=== PATIENT | female | born 1960 | race Caucasian/White ===

== ENCOUNTER 2019-03-28 08:30 | Day surgery (SDC) | payer OTHER ==
[2019-03-24 17:02] VITALS: BMI 22.4
[~2019-03-28 08:30] MED LIST: LACTATED RINGERS 1,000 ML IV SCH; LIDOCAINE 1% 20 ML VIAL (10MG/ML) FOR IV START INTRADERMA PRN
[2019-03-28 09:13] VITALS: RESP 16; TEMP 98.1
[2019-03-28] MEDS ORDERED: MIDAZOLAM 2 MG/2 ML VIAL ONE (09:15)
[2019-03-28] MEDS ORDERED: fentaNYL (PF) 50 MCG/ML 2 ML AMP ONE (09:15)
[2019-03-28] MEDS ORDERED: PROPOFOL 10 MG/ML 20 ML VIAL IV ONE (09:15)
--- NOTE | 2019-03-28 09:18 | P.GSHP ---
History of Present Illness H&P Date: 03/28/19 Chief Complaint: GI bleed, hemorrhoids This a 58-year-old female who presents today for colonoscopy. Patient issues with GI bleed and hemorrhoids. Past Medical History Past Medical History: Cancer, Thyroid Disorder Additional Past Medical History / Comment(s): seasonal allergies, chronic constipation, uterine & ovarian cancer October 2011, urinary urgency & incontinence History of Any Multi-Drug Resistant Organisms: None Reported Past Surgical History: Bladder Surgery, Hysterectomy Additional Past Surgical History / Comment(s): bladder sling Past Anesthesia/Blood Transfusion Reactions: No Reported Reaction Smoking Status: Never smoker - Past Family History Mother Family Medical History: Cancer Medications and Allergies Home Medications Medication Instructions Recorded Confirmed Type ALPRAZolam [Xanax] 0.5 mg PO BID PRN 03/24/19 03/28/19 History Armodafinil [Nuvigil] 250 mg PO QAM 03/24/19 03/28/19 History Cranberry Fruit Extract [Cranberry] 500 mg PO DAILY 03/24/19 03/28/19 History Dextroamphetamine/Amphetamine 30 mg PO TID 03/24/19 03/28/19 History [Adderall] Levothyroxine Sodium [Synthroid] 75 mcg PO DAILY 03/24/19 03/28/19 History Mirabegron [Myrbetriq] 50 mg PO DAILY 03/24/19 03/28/19 History Vein Support 2 tab PO DAILY 03/24/19 History Allergies Allergy/AdvReac Type Severity Reaction Status Date / Time azithromycin Allergy Rash/Hives Verified 03/24/19 16:36 erythromycin base Allergy Rash/Hives Verified 03/24/19 16:36 Penicillins Allergy Rash/Hives Verified 03/24/19 16:36 walnut Allergy Anaphylaxis Verified 03/24/19 16:36 Surgical - Exam Vital Signs Temp Pulse Resp BP Pulse Ox 98.1 F 63 16 119/70 100 03/28/19 09:09 03/28/19 09:09 03/28/19 09:09 03/28/19 09:09 03/28/19 09:09 - General well developed, well nourished, no distress - Eyes PERRL - ENT normal pinna - Neck no masses - Respiratory normal expansion - Cardiovascular Rhythm: regular - Abdomen Abdomen: soft, non tender Assessment and Plan Assessment: GI bleed, hemorrhoids. We'll perform colonoscopy.
--- NOTE | 2019-03-28 09:24 | P.OP ---
Date of Procedure: 03/28/19 Preoperative Diagnosis: Hemorrhoids GI bleed Postoperative Diagnosis: Poor colon prep Procedure(s) Performed: Colonoscopy Anesthesia: MAC Surgeon: Jay Justice Pathology: none sent Condition: stable Disposition: PACU Description of Procedure: The patient's placed on the endoscopy table lateral position. She received IV sedation. Digital rectal exam was performed and a large amount liquid stool seen the rectum. The colonoscope was placed in the patient's anus and the rectum. There was a large amount liquid stool. The prep was inadequate. This point the procedure was aborted. Patient will be rescheduled for colonoscopy in a.m. after she reprepped.
[2019-03-28 10:00] VITALS: BP 119/75; PULSE 52
== END 2019-03-28 10:04 | disposition home or self-care (01) ==
LOC: ORWHC2ENDO 08:30
PROVIDERS: ATTEND Surgery
DX: K64.9 Unspecified hemorrhoids (principal); Z53.8 Procedure and treatment not carried out for other reasons; K92.2 Gastrointestinal hemorrhage, unspecified; E07.9 Disorder of thyroid, unspecified; K59.09 Other constipation; Z90.710 Acquired absence of both cervix and uterus; F90.9 Attention-deficit hyperactivity disorder, unspecified type; R32 Unspecified urinary incontinence; Z88.1 Allergy status to other antibiotic agents; Z91.018 Allergy to other foods; Z88.0 Allergy status to penicillin; Z91.048 Other nonmedicinal substance allergy status; Z79.890 Hormone replacement therapy; Z79.899 Other long term (current) drug therapy
CPT/HCPCS: 45378; J2250; J3010; J2704

== ENCOUNTER 2019-03-29 13:50 | Day surgery (SDC) | payer OTHER ==
[2019-03-29 14:06] VITALS: RESP 18; TEMP 98.9
[2019-03-29] MEDS ORDERED: LACTATED RINGERS 1,000 ML IV ONE (14:10)
[2019-03-29] MEDS ORDERED: PROPOFOL 10 MG/ML 20 ML VIAL IV ONE (15:36)
--- NOTE | 2019-03-29 15:39 | P.GSHP ---
History of Present Illness H&P Date: 03/29/19 Chief Complaint: GI bleed, hemorrhoids This is a 58 row female who presents today for colonoscopy. Patient was rigid originally scheduled for colonoscopy yesterday however her prep was poor. She was reprepped and brought back for colonoscopy today. Patient is known history of hemorrhoids. Past Medical History Past Medical History: Cancer, Thyroid Disorder Additional Past Medical History / Comment(s): seasonal allergies, chronic constipation, uterine & ovarian cancer October 2011, urinary urgency & incontinence History of Any Multi-Drug Resistant Organisms: None Reported Past Surgical History: Bladder Surgery, Hysterectomy Additional Past Surgical History / Comment(s): bladder sling Past Anesthesia/Blood Transfusion Reactions: No Reported Reaction Smoking Status: Never smoker - Past Family History Mother Family Medical History: Cancer Medications and Allergies Home Medications Medication Instructions Recorded Confirmed Type ALPRAZolam [Xanax] 0.5 mg PO BID PRN 03/24/19 03/29/19 History Armodafinil [Nuvigil] 250 mg PO QAM 03/24/19 03/29/19 History Cranberry Fruit Extract [Cranberry] 500 mg PO DAILY 03/24/19 03/29/19 History Dextroamphetamine/Amphetamine 30 mg PO TID 03/24/19 03/29/19 History [Adderall] Levothyroxine Sodium [Synthroid] 75 mcg PO DAILY 03/24/19 03/29/19 History Mirabegron [Myrbetriq] 50 mg PO DAILY 03/24/19 03/29/19 History Vein Support 2 tab PO DAILY 03/24/19 03/29/19 History Allergies Allergy/AdvReac Type Severity Reaction Status Date / Time azithromycin Allergy Rash/Hives Verified 03/29/19 14:06 erythromycin base Allergy Rash/Hives Verified 03/29/19 14:06 Penicillins Allergy Rash/Hives Verified 03/29/19 14:06 walnut Allergy Anaphylaxis Verified 03/29/19 14:06 Surgical - Exam Vital Signs Temp Pulse Resp BP Pulse Ox 98.9 F 64 18 131/71 97 03/29/19 14:05 03/29/19 14:05 03/29/19 14:05 03/29/19 14:05 03/29/19 14:05 - General well developed, well nourished, no distress - Eyes PERRL - ENT normal pinna - Neck no masses - Respiratory normal expansion - Cardiovascular Rhythm: regular - Abdomen Abdomen: soft, non tender
--- NOTE | 2019-03-29 15:57 | P.OP ---
Date of Procedure: 03/29/19 Preoperative Diagnosis: GI bleed Hemorrhoids Postoperative Diagnosis: Internal and external hemorrhoids Diverticulosis Tortuous colon Procedure(s) Performed: Colonoscopy Anesthesia: MAC Surgeon: Jay Justice Pathology: none sent Condition: stable Disposition: PACU Description of Procedure: The patient's placed on the endoscopy table in the lateral position. She received IV sedation. Digital rectal exam was performed which revealed internal/external hemorrhoids. The flexible colonoscope was then placed patient anus and passed throughout the colon. The ileocecal valve was visualized secondary to tortuosity valve. At this point the scope was brought back in the distal right colon was visualized. This appeared normal. The transverse colon appeared normal. In the descending colon was a few scattered diverticula. In the sigmoid: There is more extensive diverticular changes. The rectum was normal. Scope was withdrawn for patient.
[2019-03-29 16:49] VITALS: BP 131/75; PULSE 54
== END 2019-03-29 17:20 | disposition home or self-care (01) ==
LOC: ORWHC2ENDO 13:50
PROVIDERS: ATTEND Surgery
DX: K64.4 Residual hemorrhoidal skin tags (principal); K64.8 Other hemorrhoids; K57.30 Diverticulosis of large intestine without perforation or abscess without bleeding; Q43.9 Congenital malformation of intestine, unspecified; F32.9 Major depressive disorder, single episode, unspecified; F90.9 Attention-deficit hyperactivity disorder, unspecified type; E07.9 Disorder of thyroid, unspecified; J30.2 Other seasonal allergic rhinitis; Z85.43 Personal history of malignant neoplasm of ovary; Z85.42 Personal history of malignant neoplasm of other parts of uterus; Z88.0 Allergy status to penicillin; Z91.018 Allergy to other foods; Z88.1 Allergy status to other antibiotic agents; Z90.710 Acquired absence of both cervix and uterus; Z98.890 Other specified postprocedural states; Z80.9 Family history of malignant neoplasm, unspecified; Z79.890 Hormone replacement therapy; Z79.899 Other long term (current) drug therapy
CPT/HCPCS: 45378; J2704

== ENCOUNTER → 2020-05-13 | Outpatient (CLI) | payer BC ==
[2020-05-14 00:43] LABS: Protein, Total 6.5 g/dL (6.2-8.2)
[2020-05-14 03:03] LABS: Hemoglobin A1C 5.4 % (4.0-6.0)
[2020-05-14 13:21] LABS: Albumin 4.11 g/dL (3.80-4.90); Gamma Globulin 0.86 g/dL (0.70-1.50)
[2020-05-14 13:24] LABS: Zinc, Serum 66 ug/dL (60-130)
== END | disposition home or self-care (01) ==
LOC: LABWHC1 15:57
PROVIDERS: ATTEND Psychiatry & Neurology Neurology
DX: R73.9 Hyperglycemia, unspecified (principal); G62.9 Polyneuropathy, unspecified
CPT/HCPCS: 36415; 82175; 82525; 82570; 82607; 83036; 83655; 83825; 84165; 84207; 84630; 85652; 86038; 86039; 86618

== ENCOUNTER → 2020-05-30 | Outpatient (CLI) | payer BC ==
[2020-05-31 04:35] LABS: Scleroderma SC-70 Ab <0.2 AI
== END | disposition home or self-care (01) ==
LOC: LABWHC1 15:26
PROVIDERS: ATTEND Psychiatry & Neurology Neurology
DX: G60.9 Hereditary and idiopathic neuropathy, unspecified (principal); R26.81 Unsteadiness on feet
CPT/HCPCS: 36415; 86235; 86431

== ENCOUNTER → 2020-11-27 | Outpatient (CLI) | payer BC | END | disposition home or self-care (01) | DX: I20.9 Angina pectoris, unspecified (principal) | CPT/HCPCS: 93017; 78452; A9500 ==